=== PATIENT | female | born 1990 | race Caucasian/White ===

== ENCOUNTER 2019-02-01 11:32 | Emergency (ER) | payer MEDICAID ==
[~2019-02-01] VITALS: Ht 165.1 cm; Wt 57.9 kg
[~2019-02-01 11:32] MED LIST: ACET500C5 PO; PREN-93 PO
[2019-02-01 11:40] VITALS: BP 112/57; PULSE 96; RESP 18; Ht 165.1 cm; Wt 57.9 kg
[2019-02-01] MEDS ORDERED: ACETAMINOPHEN 325 MG TAB PO ONE (12:30)
== END 2019-02-01 13:31 | disposition home or self-care (01) ==
LOC: FTE 11:32
DX: O99.513 Diseases of the respiratory system complicating pregnancy, third trimester (principal); J06.9 Acute upper respiratory infection, unspecified; Z3A.00 Weeks of gestation of pregnancy not specified
CPT/HCPCS: 87880; Z7502; Z7610; 99283